=== PATIENT | male | born 1995 | race African-American/Black ===

== ENCOUNTER 2016-06-23 12:06 | Emergency (ER) | payer SELFPAY ==
[~2016-06-23] VITALS: Ht 175.3 cm; Wt 84.0 kg
[~2016-06-23 12:06] MED LIST: CORTI10A AU
[2016-06-23 12:07] VITALS: BP 127/89; PULSE 90; RESP 20; TEMP 98.2; O2SAT 98
--- NOTE | 2016-06-23 13:36 | PD ---
HPI Chief Complaint: Cold / Flu Symptoms Time Seen by Provider: 13:33 Travel History International Travel<30 days: No Contact w/Intl Traveler<30days: No Traveled to known affect area: No History of Present Illness HPI 21-year-old male presents to the emergency Department with complaint of headache , body aches, nasal congestion, cough 2 days. 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 Reports fever 100.3 today when checked by the school nurse. Was given ibuprofen at that time for fever control. Reports chills. Denies sore throat, ear pain. Denies abdominal pain, nausea, vomiting, change in urine or stool. Has been taking [id number] medications with good relief of symptoms. His roommate is also sick with similar symptoms. Allergies to penicillin. No modifying factors or associated signs and symptoms. PFSH Social History Alcohol Use: No Tobacco Use: No Allergies-Medications (Allergen,Severity, Reaction): Coded Allergies: Penicillin (Verified Allergy, Severe, Swelling, 06/23/16) Reported Meds & Prescriptions Reported Meds & Active Scripts Active Cortisporin Otic Solution (Neomycin/Polymyxin/Hydrocortisone) 10 Ml Soln 4 Drop AU QID 7 Days Review of Systems Except as stated in HPI: all other systems reviewed are Neg Physical Exam Narrative GENERAL: Well-nourished, well-developed male patient, in no acute distress; afebrile, nontoxic-appearing SKIN: Warm and dry. No rash. HEAD: Atraumatic. Normocephalic. EYES: Pupils equal and round at 3 mm with brisk reaction. No scleral icterus. No injection or drainage. PERRLA. ENT: Mucosa pink and moist. No erythema or exudates. No uvular edema. No uvular , palatal, or tonsillar deviation. Airway patent. EARS: Bilateral pinnae and external canals appear within normal limits. Bilateral tympanic membranes without erythema, dullness or perforation. NECK: Trachea midline. No lymphadenopathy. CARDIOVASCULAR: Regular rate and rhythm. No murmur appreciated. RESPIRATORY: No accessory muscle use. Clear to auscultation. Breath sounds equal bilaterally. GASTROINTESTINAL: Abdomen soft, non-tender, nondistended. Hepatic and splenic margins not palpable. Bowel sounds are active 4 quadrants. MUSCULOSKELETAL: No obvious deformities. No clubbing. No cyanosis. No edema. NEUROLOGICAL: Awake and alert. Oriented 3. No obvious cranial nerve deficits. Motor grossly within normal limits. Normal speech. Moves all extremities. 5/5 strength to all extremities. PSYCHIATRIC: Appropriate mood and affect; insight and judgment normal. Data Data Last Documented VS Vital Signs Date Time Temp Pulse Resp B/P Pulse Ox O2 Delivery O2 Flow Rate FiO2 06/23/16 12:07 98.2 90 20 127/89 98 Room Air Orders Influenzae A/B Antigen (06/23/16 13:29) MDM Medical Decision Making Medical Screen Exam Complete: Yes Emergency Medical Condition: Yes Medical Record Reviewed: Yes Differential Diagnosis Influenza, upper respiratory infection, sinusitis Narrative Course 21-year-old male with cold/flu symptoms 2 days. Was sent by his school nurse for evaluation. Patient is afebrile in the ER. He reports fever prior to arrival the 100.3 and was given ibuprofen by the school nurse. Patient has nontoxic-appearing. Influenza ordered. 1419: Influenza positive. Discussed viral illness and symptomatic management. Tamiflu, ibuprofen prescribed for home. Patient verbalizes understanding and agreement with treatment plan. Patient is medically cleared and stable for discharge. Discussed reasons to return to the emergency department. Instructed patient to follow up with primary care provider. Patient agrees with treatment plan. The patients vital signs are stable and the patient is stable for outpatient follow-up and treatment. Patient discharged home, stable and in no acute distress. Diagnosis Primary Impression: Influenza B Referrals: Primary Care Physician Patient Instructions: General Instructions, Influenza (ED) Departure Forms: School Release, Enter return to school date ABOVE or choose options BELOW: Fever free for 24 hrs Tests/Procedures, Work Release Special Instructions: May return back to work when fever free for 24 hours Additional Instructions: Ibuprofen or Tylenol as directed and as needed to reduce fever; may alternate ibuprofen and Tylenol as needed every 3 hours to minimize fever [id number]-ahb-kebqijl cough/cold/flu medications as directed and as needed for symptom management Get plenty of sleep/rest Drink plenty of fluids to prevent dehydration [place] diet to encourage nutrition such as crackers, fruit, applesauce, toast, soup etc. Use an air humidifier/turn off ceiling fans Follow-up with your primary care provider Return immediately to the emergency department with worsening of symptoms Med/Other Pt SpecificInfo: Prescription(s) given Scripts Ibuprofen 800 Mg Bpm076 Mg PO Q6HR PRN (PAIN) #30 TAB Ref 0 Prov:Claudia Leary 06/23/16 Oseltamivir (Tamiflu)75 Mg Cap75 Mg PO BID 5 Days Ref 0 Prov:Claudia Leary 06/23/16 Disposition: 01 DISCHARGE HOME Condition: Stable Claudia Leary Jun 23, 2016 13:36
[2016-06-23] MEDS ORDERED: OSEL75 PO (14:21)
[2016-06-23] MEDS ORDERED: IBUP800T23 PO (14:21)
== END 2016-06-23 14:30 | disposition home or self-care (01) ==
LOC: NETRI 12:06
DX: J10.1 Influenza due to other identified influenza virus with other respiratory manifestations (principal); R50.9 Fever, unspecified
CPT/HCPCS: 87804; 99283